=== PATIENT | female | born 1965 | race American Indian/Alaskan Native ===

== ENCOUNTER 2018-03-07 15:00 | Emergency (ER) | payer SELFPAY ==
[2018-03-07] VITALS (120 sets, daily range): BP systolic 69–169; BP diastolic 0–146; PULSE 45–173; RESP 12–44; TEMP 36.4–37.2; O2SAT 53–100
[2018-03-07 16:16] LABS: Abs Immature Grans 0.02 k/cumm (0.0-0.09); Absolute Basophil Count 0.02 k/cumm (0.0-0.2); Absolute Eosinophil Count 0.08 k/cumm (0.0-0.7); Absolute Lymphocyte Count 1.42 k/cumm (1.2-3.4); Absolute Monocyte Count 0.43 k/cumm (0.11-0.7); Absolute Neutrophil Count 8.35 k/cumm (1.2-6.7); Basophils % 0.2; Eosinophils % 0.8; HCT 36.8 % (36.0-46.0); Immature Grans % 0.2; Lymphocytes % 13.8; Mean Corp. HGB Concentration 32.6 g/dL (32.0-36.0); Mean Corpuscular Hemoglobin 26.7 pg (27.0-33.0); Monocytes % 4.2; Neutrophils % 80.8; Platelet Count 283 x1000/uL (130-400); RBC 4.49 m/cumm (4.00-5.20); RBC Distribution Width 12.6 % (11.7-14.6); White Blood Cell Count 10.32 k/cumm (4.4-10.8)
--- NOTE | 2018-03-07 16:25 | W.ED.GENAD ---
Discharge Plan Discharge Details Chief Complaint: Cellulitis Primary Care Provider: NONE,NONE ED Provider: Bozena Zuniga Home Meds and New Rx's Prescriptions: No Action acetaminophen [Tylenol Extra Strength] 500 mg Tablet 1,000 mg PO Q6H PRNRF: 0 Discharge Data Discharge Date/Time-TO BE ENTERED AT DEPARTURE: 03/07/18 21:51 Medical Decision Making <Mook Frank NP - Last Filed: 03/08/18 09:07> Patient presenting to the emergency department for chronic left lower extremity wounds. Patient does state that she was diagnosed with diabetes a couple years ago but due to moving to the area not having a primary care provider she has not been taking any medication to control her diabetes. Patient reports 1 month ago she had small blisters to her left lower leg that became larger and larger wounds and have not healed. Today pain became worse so she is presenting to the emergency department for evaluation. Patient denies any fever chills or other wounds. Physical exam shows 3 wounds to the left anterior maya with some purulent drainage and surrounding erythema. There is central eschar present making wounds unstageable. Plan to check labs including A1c, wound culture, and radiological imaging of the lower extremity to ensure no bone involvement. For pain control patient given IV ketorolac pending results. Review of labs show a leukocytosis and hyperglycemia otherwise nonspecific findings. Review of radiological imaging shows a small pocket of air near area of wounds. Care patient was transferred to [place] BROWN for further consultation for concern of possible necrotizing fasciitis. <KEVIN Cheatham - Last Filed: 03/08/18 00:41> Patient was centered to myself by ALEKSANDRA Carreon. At the time of my arrival and shift, A1c is still pending. Imaging is just back but not reviewed with the patient as of yet. Patient presented today with chief complaint of acute on chronic left lower extremity wound. Patient is uncontrolled diabetic. Please see above documentation. Per patient's history, she has not been taking any of her diabetic medication for over the past year as she moved to the area is not yet established primary care. Glucose at the time CMP was obtained was 428. Monika also ordered an A1c. This is still pending. Patient reports that over the past few days her pain has greatly increased. She and her report that the wound has waxed and waned in size for the past month. The reports surrounding erythema in particular has waxed and waned. She has 2 circular areas of eschar as documented above that appear quite chronic and difficult to stage. I did reexamine the patient. The erythematous area is warm to the touch. No discharge is able to be expressed all the discharge was able to be expressed from the smaller of the 2 wounds earlier which was sent for culture. Patient appears nontoxic. No crepitus is palpated on exam. Patient remains afebrile. Current temperature 37.2, heart rate is 108. Patient underwent x-ray on the left lower extremity to evaluate for possible infection. X-ray significant for diffuse swelling of the lower leg soft tissues with reticulation of the subcutaneous fat, nonspecific. These changes may be seen with edema, hemorrhage as well as cellulitis. Findings suspicious for small gas collection within the anterior medial soft tissues of the lower third of the left leg. Calcifications within the pretibial soft tissues, consistent with phleboliths. Arterial calcifications at the ankle. No periosteal retraction or bone destruction. No acute fracture. With the gas noted, plan to consult with general surgery. Spoke with Dr. Washington. Reviewed the concerning imaging, the labs and patient physical exam findings. He advised that patient should be admitted for glucose control and IV abx. Plan to start patietn on Vancomycin and Zosyn. Will recheck fingerstick. Prior to starting abx, will obtain blood cultures and lactate. Erythematous area was marked by nursing staff Consulted with Dr. Islas who agrees to admission and will consult with general surgery for continued wound care. He has requested that CT be added as well, will also obtain this. Patient going to [facility]. He has a place holding orders and begin antibiotics at this time Patient back from CT, reviewed the images myself and appreciate small pockets of air, contacted Dr. Washington. He reviewed the images. Notes the air but reports that she is not consistent at this point with necrotizing fasciitis. Continues to Advise admission for IV abx and continued monitoring. Will come to evaluate patient. Patient will be begun on Vancomycin and Zosyn. Patient has allergy to erythromycin base but reports it is not an allergy but rather it doesnt work for me. Shortly after the Zosyn was begun the patient began endorsing itching. This was immediately stopped by nursing staff. Lungs are clear. Will give IV Benadryl. Immediately after leaving the patient to order the Benadryl, nursing staff called for further support. Patient had requested commode for urination. Nursing staff helping the patient to urinate and patient slumped forward, appears to have had a syncopal episode. Patient briefly recovered before having same episode again. Nursing staff and myself put patient back into the bed. She appears fatigued and confused. Will give epi and zantac with the above Benadryl. Patient was switched to resuscitation bay. Patient quickly began to deteriorate, became completely unresponsive within 3 minutes of onset of symptoms. Agonal breathing. Dr. Elizondo decided to intubate the patient. Second line being started. Patient recieved IM epi. Total of 3 IM doses of epi given, patient continues to be unresponsive. Oxygen is dropping, she is able to be bagged with good response. Patient intubated by Dr. Elizondo with Etomidate and Succinylcholine. 7-0 tube placed. Colometric change noted. Patient given IV dexamethasone. XR reviewed by myself, patient appears to have in the right mainstem, this was backed out 3cm with equal breath sounds bilaterally. Repeat cxr will be obtained. Please see Dr. German's note regarding further critical care information. Patient is tachycardic, hypotensive with oxygenation in the 80s. Epi drip started. This did cause increased tachycardia. [place] [facility] [place]. Elizondo spoke with Dr. Hannah who agrees to transfer. They also recommended beginning on Norepi, this was started and mnitored by Dr. Elizondo. Thye also advised starting the patient on Vancomycin, Clindamycin and Meropenem for LLE infection with gas collection. IO started right femur. Attempt was made initially in the left tibia and was unsuccessful. Secondary to the infection in the LLE will not start line on this leg. patient has 2 peripheral IV on the left UE, IV right AC. Blood pressure has waxed and waned as had O2, vasopressors and vent setting monitored and maintained by Dr. Elizondo. [place] [facility] [place] [facility] [place] [facility] [place] Prior to transfer, patient is improved, she has stabilized. Remains on pressors and on vent. Has required Versed for sedation. HPI <Mook Frank NP - Last Filed: 03/08/18 09:07> General Mode of arrival: ambulatory. Date/Time Provider Initiated Documentation: 03/07/18 15:22. Limitations to Documentation: no limitations. Information obtained by: patient and RN notes reviewed. History of Present Illness 52 year old F presents to the emergency department with the chief complaint of Left lower leg wounds, described as moderate, with intensity rated at 8. Quality is described as aching and sharp, and is localized to the left and lower extremity. Patient started experiencing this month(s) (1) and it has been constant. No relieving factors improve symptom(s), No exacerbating factors reported . Patient notes no other symptoms.. Patient did receive the following treatments prior to arrival, none Related Data Home Medications Medication Instructions Recorded Confirmed acetaminophen [Tylenol Extra 1,000 mg PO Q6H PRN 03/07/18 03/07/18 Strength] Allergies Allergy/AdvReac Type Severity Reaction Status Date / Time erythromycin base Allergy Severe Anaphylaxsi Unverified 03/07/18 20:31 s piperacillin Allergy Anaphylaxsi Unverified 03/07/18 21:03 s General Stated Complaint: Cellulitis ZARIA: 3 Review of Systems <Mook Frank NP - Last Filed: 03/08/18 09:07> Constitutional Denies body ache(s), Denies chills and Denies fever(s) Cardiovascular Denies chest pain and Denies dyspnea Respiratory Denies dyspnea Gastrointestinal Denies abdominal pain, Denies nausea and Denies vomiting Integumentary/Breasts Reports as per HPI and Reports skin ulcer Neurologic Denies confusion and Denies sensory deficit Psychiatric Denies confusion Endocrine Denies polyphagia, Denies polydipsia and Denies polyuria Exam <Mook Frank NP - Last Filed: 03/08/18 09:07> Const General: cooperative, no acute distress and not ill appearing Orientation: alert, awake and oriented x3 HENMT Mouth: moist mucous membranes Resp Effort & Inspection: normal respiratory effort, able to speak in complete sentences and no respiratory distress Cardio Rate: regular rate Rhythm: regular rhythm Skin Wounds: wounds noted (3 wounds are noted to patient's left anterior maya with some surrounding erythema, mild purulent drainage, and central eschar noted) Neuro General: alert, awake, oriented x3, moves all extremities and no focal motor deficits Sensory Exam: no sensory deficits noted Course <Mook Frank NP - Last Filed: 03/08/18 09:07> Vital Signs Temperature 36.8 C 03/07/18 15:06 Pulse 107 H 03/07/18 15:06 Respiratory Rate 16 03/07/18 15:06 Blood Pressure 160/101 H 03/07/18 15:06 Pulse Oximetry 98 03/07/18 15:06 Temperature 36.8 C 03/07/18 15:06 Temperature Source Temporal Artery Scan 03/07/18 15:06 Pulse 107 H 03/07/18 15:06 Respiratory Rate 16 03/07/18 15:06 Respiratory Effort Non-Labored 03/07/18 15:09 Blood Pressure 160/101 H 03/07/18 15:06 Pulse Oximetry 98 03/07/18 15:06 Oxygen Delivery Method Room Air 03/07/18 15:06 Oxygen Flow Rate 0 03/07/18 15:06 Pain Level 10 03/07/18 15:06 Lab/Test Results Lab/Test Results: Laboratory Tests Range/Units 03/07/18 16:10 WBC (4.4-10.8) k/cumm 10.32 RBC (4.00-5.20) m/cumm 4.49 Hgb (12.0-15.5) g/dL 12.0 Hct (36.0-46.0) % 36.8 MCV (80-95) fL 82.0 MCH (27.0-33.0) pg 26.7 L MCHC (32.0-36.0) g/dL 32.6 RDW (11.7-14.6) % 12.6 Plt Count (130-400) x1000/uL 283 MPV (8.0-11.0) fL 9.0 Immature Gran % 0.2 Neutrophils % 80.8 Lymphocytes % 13.8 Monocytes % 4.2 Eosinophils % 0.8 Basophils % 0.2 Absolute Neutrophils (1.2-6.7) k/cumm 8.35 H Absolute Lymphocytes (1.2-3.4) k/cumm 1.42 Absolute Monocytes (0.11-0.7) k/cumm 0.43 Absolute Eosinophils (0.0-0.7) k/cumm 0.08 Absolute Basophils (0.0-0.2) k/cumm 0.02 Sign Out <Mook Frank NP - Last Filed: 03/08/18 09:07> Sign Out Data: Sign Out Comment: Report of patient care given to [place] Zuniga for follow-up on hemoglobin A1c along with talking to general surgeon in regards to air seen on radiological imaging corresponding with wounds. Last updated by Mook Frank NP at 03/07/18 17:05
[2018-03-07 16:28] LABS: ALT 23 U/L (12-78); AST 14 U/L (15-37); Albumin 2.9 g/dL (3.4-5.0); Alkaline Phosphatase 141 U/L (46-116); Anion Gap 7.6 mmol/L (3-11); BUN 13 mg/dL (7-18); Bilirubin, Total 0.3 mg/dL (0.2-1.0); CO2 28.4 mmol/L (21.0-32.0); CREATININE 0.81 mg/dL (0.55-1.02); Chloride 100 mmol/L (98-107); Glucose 428 mg/dL (70-100); Potassium 4.3 mmol/L (3.5-5.1); Sodium 136 mmol/L (136-145); Total Protein 8.2 g/dL (6.4-8.2)
--- NOTE | 2018-03-07 16:29 | DI.COMBO_ITS ---
SYMPTOM/DIAGNOSIS: LT ANT LEG WOUND, S/P INTUBATION, READJUSTMENT OF ET TUBE LEFT LEG: The bony structures are normally mineralized. There is no evidence of bony destruction or periosteal reaction or a fracture. There is diffuse soft tissue swelling involving the lower leg with reticulation of the subcutaneous fat. These findings could be seen with edema, hemorrhage or cellulitis. The images raise the possibility of a small gas collection in the anterior medial soft tissues of the lower third of the left leg. Calcification in the pretibial soft tissues is noted with evidence of phleboliths. Arterial calcifications are noted in the ankle. SUMMARY: Diffuse soft tissue swelling left lower leg. Findings suspicious for possible small gas collection within the anterior medial soft tissues of the distal third of the left lower leg. LEFT LOWER LEG CT: The study was carried out with intravenous administration of 100 cc's of Omnipaque 350. Diffuse soft tissue swelling of the subcutaneous tissues in the lower leg with fluid and fluid density reticulation is noted within the subcutaneous fat. There are multiple small gas collections within the thickened skin and subcutaneous tissue at the anterior medial aspect of the distal third of the left lower leg. A few small gas collections extend just adjacent to the crucial fascia. The findings would be consistent with cellulitis possibly secondary to gas forming organism. The findings raise concern for necrotizing fascitis. No drainable abscess is present. There is no radiopaque foreign body. There is no periosteal reaction or evidence of bone destruction. SUMMARY: Findings consistent with cellulitis. Gas collections within the subcutaneous tissue are noted as described above and could be secondary to gas forming organisms. The findings raise concern for necrotizing fascitis. AP SUPINE CHEST: The right lung is clear. The endotracheal tube ends in the right main stem bronchus. The tube could be pulled back 4-5 cm. There are regions of apparent infiltration and atelectasis involving the left lung. There is no pneumothorax or pleural effusion. The heart does not appear enlarged. The patient is status post cholecystectomy. No acute bony abnormality is seen. SUMMARY: The endotracheal tube ends in the right main stem bronchus. There are regions of infiltration and/or atelectasis involving the left lung. AP SUPINE CHEST: An endotracheal tube is present with its tip ending just above the terri. There is elevation of the left hemidiaphragm with apparent volume loss involving the left lung. Question region of infiltration or scarring involving the left upper lobe. There is no pleural effusion or pneumothorax. The heart is unremarkable. The patient is status post cholecystectomy. The bony structures appear intact. SUMMARY: The endotracheal tube ends just above the terri and could be pulled back 2 or 3 cm. There is elevation of the left hemidiaphragm. There has been considerable clearing of the left lung when compared with the prior study obtained at 649 pm.
--- NOTE | 2018-03-07 16:53 | DI.VRAD_ITS ---
EXAM: XR Left Tibia and Fibula, 2 Views EXAM DATE/TIME: 03/07/2018 3:46 PM CLINICAL HISTORY: 52 years old, female; Pain; Lower leg; Left; Patient HX: Left anterior leg wound TECHNIQUE: XR Left tibia and fibula 2 views COMPARISON: No relevant prior studies available. FINDINGS: Bones/joints: Normal bone density. No periosteal reaction or bone destruction. No fracture. Soft tissues: Diffuse swelling of the lower leg soft tissues with reticulation of the subcutaneous fat, nonspecific. These changes may be seen with edema, hemorrhage as well as cellulitis. Findings suspicious for small gas collection within the anterior medial soft tissues of the lower third of the left lower leg. Calcifications within the pretibial soft tissues, consistent with phleboliths. Vasculature: Arterial calcifications at the ankle. IMPRESSION: 1. Diffuse swelling of the lower leg soft tissues. 2. Findings suspicious for a small gas collection within the anterior medial soft tissues of the lower third of the lower leg. Dictated and Authenticated by: Dl Carmona MD. Ordering:MAYELIN CARPIO MD
[2018-03-07] MEDS: Ketorolac 15 MG/ML VIAL IVP (16:54)
[2018-03-07 17:12] LABS: Hemoglobin A1C 13.2 % (4.5-6.2)
[2018-03-07 17:47] LABS: Lactate-non-spesis 1.1 mmol/L (0.6-1.4)
[2018-03-07] MEDS: Omnipaque 350 MG/ML 100 ML BTL IJ (18:01)
[2018-03-07] MEDS: PIPERACILLIN/TAZO 4.5 GM in Normal Saline 100 ML IVPB (18:15)
[2018-03-07] MEDS: diphenhydrAMINE 50 MG/ML VIAL IVP (18:23)
[2018-03-07] MEDS: Normal Saline 1,000 ML 2000 ML IV (18:30)
--- NOTE | 2018-03-07 18:54 | DI.VRAD_ITS ---
EXAM: CT Left Lower Extremity With Intravenous Contrast, Ankle CLINICAL HISTORY: 52 years old, female; Abnormal findings; Abnormal imaging study; Gas on xr TECHNIQUE: Axial computed tomography images of the left ankle with intravenous contrast. Coronal and sagittal reformatted images were created and reviewed. CONTRAST: 100 mL of Omnipaque 350 administered intravenously. COMPARISON: No relevant prior studies available. FINDINGS: There is diffuse swelling of the subcutaneous tissues of the lower leg with fluid and fluid density reticulation within the subcutaneous fat. There are multiple small gas collections within the thickened skin and subcutaneous tissues at the anteromedial aspect of the distal third of the lower leg. A few small gas collections extend to or just adjacent to the crural fascia. The findings are consistent with cellulitis and possibly secondary to gas-forming organism. The findings raise the concern for necrotizing fasciitis. No drainable abscess is present. No radiopaque foreign body. No periosteal reaction or bone destruction is present. IMPRESSION: Findings consistent with cellulitis. Gas collections within the subcutaneous tissues of the lower leg extending to the crural fascia may be secondary to gas-forming organisms. The findings raise the concern for necrotizing fasciitis. Dictated and Authenticated by: Dl Carmona MD. Ordering:ANDREA SOOD MD
[2018-03-07] MEDS: Normal Saline 1,000 ML 1000 ML IV ×2 (19:00→19:20)
[2018-03-07] MEDS: Dexamethasone 10 MG/ML VIAL IVP (19:05)
[2018-03-07 19:19] LABS: HCO3 17 mmol/L (22-28); pCO2 40 mmHg (34-47); pH 7.25 (7.35-7.45); pO2 87 mmHg (83-108); sO2 94 % (94-98); tCO2 16 mmol/L (22-29)
[2018-03-07] MEDS: Midazolam 10 MG/10 ML 5 MG IVP ×4 (19:19→20:40)
[2018-03-07 19:26] LABS: FIO2 100 %; Site Right Femoral
--- NOTE | 2018-03-07 19:49 | RESPIRATORY ---
ETT pulled back approximately 3 cm to 22 cm at teeth. After adjustment, better BS in L
--- NOTE | 2018-03-07 19:53 | DI.VRAD_ITS ---
EXAM: XR Chest, 1 View EXAM DATE/TIME: 03/07/2018 6:50 PM CLINICAL HISTORY: 52 years old, female; Device placement; Ett placement (vent status) TECHNIQUE: XR of the chest, 1 view. COMPARISON: No relevant prior studies available. FINDINGS: Tubes, catheters and devices: Endotracheal tube is present with its tip in the right mainstem bronchus. Lungs: There is left hemithorax volume loss with hazy densities throughout the left lung and dense opacity within the left upper lobe. Pleural space: No pleural effusion or pneumothorax. Heart/Mediastinum: Unremarkable. No cardiomegaly. Upper abdomen: Status post cholecystectomy. Bones/joints: Unremarkable for patient's age. IMPRESSION: 1. Endotracheal tube tip within the right mainstem bronchus. 2. Left upper lobe atelectasis/collapse. Dictated and Authenticated by: Dl Carmona MD. Ordering:ANDREA SOOD MD
--- NOTE | 2018-03-07 19:55 | DI.VRAD_ITS ---
EXAM: XR Chest, 1 View EXAM DATE/TIME: 03/07/2018 6:58 PM CLINICAL HISTORY: 52 years old, female; Device placement; Ett placement (vent status) TECHNIQUE: XR of the chest, 1 view. COMPARISON: CR XR PORTABLE CHEST AP POST LINE 03/07/2018 6:49 PM FINDINGS: Tubes, catheters and devices: Endotracheal tube has been pulled back since the previous examination. The tip of the endotracheal tube is now situated approximately 1.5 cm above the terri. Lungs: There is improved aeration of the left lung with minimal patchy density in the left lung base consistent with atelectasis/infiltrate. Pleural space: No pleural effusion or pneumothorax. Heart/Mediastinum: The cardiomediastinal silhouette and pulmonary vasculature are within normal limits. Upper abdomen: The patient is status post cholecystectomy. Bones/joints: Unremarkable for patient's age. IMPRESSION: 1. Repositioning of endotracheal tube with tube tip approximately 1.5 cm above the terri. 2. Improved aeration of the left lung with minimal residual atelectasis versus infiltrate in the left lower lobe. Dictated and Authenticated by: Dl Carmona MD. Ordering:ANDREA SOOD MD
[2018-03-07] MEDS: MIDAZOLAM 50 MG in Normal Saline 90 ML IV (20:15)
[2018-03-07] MEDS: MEROPENEM 1 GM in Normal Saline 100 ML IVPB (20:30)
[2018-03-07] MEDS: Ketamine 500 MG/10 ML VIAL 350 MG IM (20:46)
[2018-03-07] MEDS: CLINDAMYCIN 600 MG/50 ML BAG 100 MG IVPB (20:55)
--- NOTE | 2018-03-08 08:01 | PDOC.ERCMPRO ---
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 Patient had allergic reaction in ED, intubated and transferred to [facility] [place]. Referral faxed to [facility] this am requesting Chronic Supply Chain Buyer reach out to [facility] [place] to schedule appt as soon as possible when patient is ready for discharge.
--- NOTE | 2018-03-08 08:03 | CMPROGNOTE_ITS ---
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 Patient had allergic reaction in ED, intub[place] and [place] [facility] [place] [facility]erral faxed to [facility] this am requesting Chronic Pl Sql Developer reach out to [facility] [place] schedule appt as soon as possible when patient is ready for discharge.
== END 2018-03-07 21:51 ==
PROVIDERS: Nurse Practitioner Family; Emergency Provider Physician Assistant
DX: S81.802A Unspecified open wound, left lower leg, initial encounter (principal); X58.XXXA Exposure to other specified factors, initial encounter; E11.65 Type 2 diabetes mellitus with hyperglycemia; E11.628 Type 2 diabetes mellitus with other skin complications; T88.6XXA Anaphylactic reaction due to adverse effect of correct drug or medicament properly administered, initial encounter; T36.0X5A Adverse effect of penicillins, initial encounter; J96.01 Acute respiratory failure with hypoxia; R00.0 Tachycardia, unspecified; R40.2433 Glasgow coma scale score 3-8, at hospital admission
CPT/HCPCS: 31500; 36415; 36416; 36680; 51702; 71045; 80053; 82805; 82962; 87040; 87077; 93005; 96361; 96365; 96366; 96367; 96368; 96372; 96375; 96376; 99285; 99291; 73590; 73701; 83036; 83605; 85025; 87070; 87186; 87205; 93010; J0171; J1100; J1885; J2543; J3490

== ENCOUNTER 2018-07-02 11:31 | Outpatient (CLI) | payer OTHER, SELFPAY ==
[2018-07-02 13:41] LABS: Hemoglobin A1C 7.9 % (4.5-6.2)
[2018-07-02 14:03] LABS: ALT 19 U/L (12-78); AST 12 U/L (15-37); Albumin 3.1 g/dL (3.4-5.0); Alkaline Phosphatase 88 U/L (46-116); Anion Gap 9.5 mmol/L (3-11); BUN 17 mg/dL (7-18); Bilirubin, Total 0.2 mg/dL (0.2-1.0); CO2 27.5 mmol/L (21.0-32.0); CREATININE 0.59 mg/dL (0.55-1.02); Calcium 9.2 mg/dL (8.5-10.1); Chloride 107 mmol/L (98-107); Cholesterol 109 mg/dL (50-200); Glucose 147 mg/dL (70-100); HDL Cholesterol 45 mg/dL (40-60); LDL CHOLESTEROL 47 mg/dL (<100); Potassium 4.3 mmol/L (3.5-5.1); Sodium 144 mmol/L (136-145); Total Protein 7.5 g/dL (6.4-8.2); Triglyceride 103 mg/dL (30-150)
== END 2018-07-02 11:51 ==
PROVIDERS: PCP Family Medicine; Visit Provider Family Medicine
DX: E11.9 Type 2 diabetes mellitus without complications (principal)
CPT/HCPCS: 36415; 80053; 80061; 83721; 83036

== ENCOUNTER 2018-07-03 14:32 | Outpatient (REF) | payer OTHER, SELFPAY ==
[2018-07-03 18:38] LABS: COMMENT (LAB VIEW ONLY) 14.15 mg/dL; Microalb ug/mg Crea 163.3 ug/mg Cr
== END 2018-07-03 14:52 ==
LOC: LBN 14:32
PROVIDERS: PCP Family Medicine; Visit Provider Family Medicine
DX: E11.9 Type 2 diabetes mellitus without complications (principal)
CPT/HCPCS: 82043; 82570